=== PATIENT | male | born 1990 | race Caucasian/White ===

== ENCOUNTER 2022-05-24 12:34 | Emergency (ER) | payer OTHER ==
[~2022-05-24] VITALS: Ht 177.8 cm; Wt 79.4 kg
--- NOTE | 2022-05-24 12:45 | NUR ---
C/O BLOODY STOOL, LOWER QUADRANT AB PAIN X 5 DAYS. AMBULATORY, PLACED ON BED, BREATHING EVEN AND UNLABORED SATURATING AT 98%RA
--- NOTE | 2022-05-24 14:25 | NUR ---
[employer] [place] AT BEDSIDE
--- NOTE | 2022-05-24 14:35 | NUR ---
PATIENT TAKEN TO CT VIA SHAD
[2022-05-24 15:01] LABS: BASOPHILS # (AUTO) 0.1 K/uL (0.0-0.2); BASOPHILS % (AUTO) 0.9 % (0.0-2.0); EOSINOPHILS % (AUTO) 0.5 % (0.0-6.0); HEMATOCRIT 46 % (39-51); HEMOGLOBIN 15.5 g/dL (13.5-17.5); LYMPHOCYTES # (AUTO) 1.9 K/uL (0.8-4.8); LYMPHOCYTES % (AUTO) 27.3 % (20.0-44.0); MEAN CORPUSCULAR HGB CONC 34 g/dl (31.0-36.0); MEAN CORPUSCULAR VOLUME 91 fL (80-96); MONOCYTES # (AUTO) 0.7 K/uL (0.1-1.30); MONOCYTES % (AUTO) 9.5 % (2.0-12.0); NEUTROPHILS # (AUTO) 4.4 K/uL (1.8-8.9); NEUTROPHILS % (AUTO) 61.8 % (43.0-81.0); PLATELET COUNT (AUTO) 254 K/uL (150-450); RED BLOOD CELL COUNT(AUTO) 5.04 MIL/uL (4.5-6.0); WHITE BLOOD COUNT (AUTO) 7.1 K/uL (4.3-11.0)
[2022-05-24 15:10] LABS: CALCIUM, SERUM 9.4 mg/dL (8.5-10.1); CREATININE 1.1 mg/dL (0.6-1.3); POTASSIUM 4.3 mmol/L (3.5-5.1)
--- NOTE | 2022-05-24 15:35 | NUR ---
Patient discharged to home in stable condition. Written and verbal after care instructions given. Patient verbalizes understanding of instruction.
[2022-05-24 15:38] VITALS: BP 129/88
== END 2022-05-24 15:35 | disposition home or self-care (01) ==
LOC: ER 12:40
DX: K92.1 Melena (principal); Z60.2 Problems related to living alone
CPT/HCPCS: 36415; 80048-TC; 83690-TC; 85025-TC